=== PATIENT | female | born 1955 | race Caucasian/White ===

== ENCOUNTER 2025-01-16 06:39 | Day surgery (SDC) | payer MEDICARE, OTHER ==
[~2025-01-16] VITALS: Ht 170.2 cm; Wt 82.7 kg
[2025-01-16] MEDS ORDERED: HYOS-15 PO (07:05)
[2025-01-16] MEDS ORDERED: PANT40TA54 (07:05)
[2025-01-16] MEDS ORDERED: [UNRECOGNIZED DRUG - OTHER] PO (07:05)
[2025-01-16] MEDS ORDERED: [UNRECOGNIZED DRUG - OTHER] PO (07:06)
[2025-01-16] MEDS ORDERED: [UNRECOGNIZED DRUG - OTHER] PO (07:07)
[2025-01-16] MEDS ORDERED: L.AC1CAP6 PO (07:08)
[2025-01-16 07:21] VITALS: BP 138/83; PULSE 76; RESP 16
[2025-01-16] MEDS ORDERED: MIDAZolam 1 MG/ML 5ML VIAL ONE (08:01)
[2025-01-16] MEDS ORDERED: LIDOcaine 2% Viscous 15ml cup ONE (08:01)
[2025-01-16] MEDS ORDERED: fentaNYL/PF 50MCG/1 ML 2ML syringe ONE (08:01)
[2025-01-16] MEDS ORDERED: simethicone 40mg/0.6ml oral drops 30ml ONE (08:08)
[2025-01-16 08:34] VITALS: BP 136/74; PULSE 81; RESP 14; O2SAT 89
[2025-01-16 08:44] VITALS: BP 138/74; PULSE 75; RESP 16; O2SAT 98
[2025-01-16 08:50] VITALS: BP 129/71; PULSE 75; RESP 15; O2SAT 97
[2025-01-16 08:54] VITALS: BP 132/72; PULSE 73; RESP 16; O2SAT 98
[2025-01-16 08:59] VITALS: BP 133/81; PULSE 72; RESP 15; O2SAT 98
== END 2025-01-16 09:12 | disposition home or self-care (01) ==
LOC: GI LAB 06:39
PROVIDERS: ATTEND Surgery
DX: K44.9 Diaphragmatic hernia without obstruction or gangrene (principal); K29.70 Gastritis, unspecified, without bleeding; Z96.642 Presence of left artificial hip joint; Z98.890 Other specified postprocedural states; Z88.2 Allergy status to sulfonamides
CPT/HCPCS: 43235; A4620; G0500; J2250; J3010; J7030; Z7512; 99152; 99153

== ENCOUNTER 2025-02-01 06:47 | Day surgery (SDC) | payer MEDICARE, OTHER ==
[2025-01-23 14:59] LABS: BASOPHILS # (AUTO) 0.1 X10'3 (0-0.2); BASOPHILS % (AUTO) 1.1 % (0-1); EOSINOPHILS # (AUTO) 0.1 X10'3 (0-0.9); LYMPHOCYTES # (AUTO) 1.5 X10'3 (1.1-4.8); LYMPHOCYTES % (AUTO) 21.5 % (21-51); MEAN CORPUSCULAR HEMOGLOBIN 29.4 PG (27.0-31.0); MEAN CORPUSCULAR HGB CONC 34.2 g/dL (33.0-36.5); MEAN CORPUSCULAR VOLUME 86.1 FL (78-98); MEAN PLATELET VOLUME 7.1 FL (7.4-10.4); MONOCYTES # (AUTO) 0.7 X10'3 (0-0.9); MONOCYTES % (AUTO) 9.9 % (2-12); NEUTROPHILS # (AUTO) 4.4 X10'3 (1.8-7.7); NEUTROPHILS % (AUTO) 65.5 % (42-75); PRE OP HEMATOCRIT 38.5 % (35.0-45.0); PRE OP HEMOGLOBIN 13.2 g/dL (12.0-16.0); PRE OP PLATELET COUNT 366 X10'3 (140-440); PRE OP WHITE BLOOD COUNT 6.8 10'3 (4.8-10.8); RED BLOOD COUNT 4.48 X10'6 (4.20-5.60)
[2025-01-23 15:14] LABS: ALBUMIN/GLOBULIN RATIO 0.8 (1.1-1.5); ALKALINE PHOSPHATASE 104 IU/L (46-116); BLOOD UREA NITROGEN 12 MG/DL (7-18); BUN/CREATININE RATIO 11.9 (10.0-20.0); CALCIUM 8.9 MG/DL (8.5-10.1); CHLORIDE 109 MMOL/L (99-107); CREATININE 1.01 MG/DL (0.40-0.90); PRE OP ALT 17 U/L (30-65); PRE OP ANION GAP 7 (8-16); PRE OP AST 23 U/L (10-37); PRE OP BILIRUB, TOTAL 0.6 MG/DL (0.0-1.0); PRE OP GLUCOSE 88 MG/DL (70-104); PRE OP POTASSIUM 3.8 MMOL/L (3.4-5.1); PRE OP SODIUM 143 MMOL/L (135-145); TOTAL CARBON DIOXIDE 27.1 MMOL/L (24-32); eGFR 54 ML/MIN
[2025-02-01] VITALS (15 sets, daily range): BP systolic 133–172; BP diastolic 70–90; PULSE 70–91; RESP 11–21; TEMP 97.7; O2SAT 86–98
[~2025-02-01] VITALS: Ht 170.2 cm; Wt 84.0 kg
[~2025-02-01 06:47] MED LIST: [UNRECOGNIZED DRUG - OTHER] PO; [UNRECOGNIZED DRUG - OTHER] PO; [UNRECOGNIZED DRUG - OTHER] PO; omega-3; ringers solution, lacted 1,000 ML IV SCH
[2025-02-01] MEDS: ceFAZolin 2gm in dextrose, iso 50 ML IV ONE (07:06)
[2025-02-01] MEDS: famotidine 20mg tablet PO ONE (07:24)
[2025-02-01] MEDS ORDERED: labetalol 20mg/4ml (5mg/ml) syringe IV PRN (08:45)
[2025-02-01] MEDS ORDERED: morphine 4 MG/ML inj SYRINge IV PRN (08:45)
[2025-02-01] MEDS ORDERED: proCHLORperazine 10 MG/2 ml inj IV PRN (08:45)
[2025-02-01] MEDS ORDERED: ringers solution, lacted 1,000 ML IV SCH (08:45)
[2025-02-01] MEDS ORDERED: meperidine/PF 25mg/ml syringe IV PRN ×3 (08:45)
[2025-02-01] MEDS ORDERED: enalaprilat 1.25mg/ml 2ml vial IV PRN (08:45)
[2025-02-01] MEDS ORDERED: propofol inj 20 ML IV ONE (08:51)
[2025-02-01] MEDS ORDERED: midazolam 1 mg/ML 2ml injection ONE (08:51)
[2025-02-01] MEDS ORDERED: LIDOcaine 2% (20mg/ml) 5ml vial ONE (08:51)
[2025-02-01] MEDS ORDERED: fentaNYL /PF 50mcg/ml 5ml ampule ONE (08:51)
[2025-02-01] MEDS ORDERED: LIDOcaine 1% 30ml preserv. free vial ONE (09:14)
[2025-02-01] MEDS ORDERED: BUPIVAcaine 2.5mg/ml inj 50ml vial (contains preservative) ONE (09:14)
[2025-02-01] MEDS ORDERED: sevoflurane 250ml liquid IH ONE (09:24)
[2025-02-01] MEDS ORDERED: rocuronium 10mg/ml inj IV ONE (09:48)
[2025-02-01] MEDS: BUPIVAcaine/PF 2.5 mg/ml (0.25%) 30ml vial IJ ONE (10:15)
[2025-02-01] MEDS ORDERED: albumin (Human) 5% 250ml 250 ML IV ONE ×2 (10:53→11:42)
[2025-02-01] MEDS ORDERED: ondansetron/PF 4mg/2ml inj ONE (11:37)
[2025-02-01] MEDS ORDERED: ketorolac trometh 30MG/ML vial 30 MG/ML VIAL ONE (11:43)
[2025-02-01] MEDS ORDERED: acetaminophen 1,000mg/100ml IV 100 ML IV ONE (11:43)
[2025-02-01] MEDS ORDERED: sugammadex 200mg/2ml injection IV ONE (11:52)
[2025-02-01] MEDS ORDERED: oxyCODONE/APAP 5-325mg tablet PO PRN (11:55)
[2025-02-01] MEDS ORDERED: naloxone 0.4 mg/ml inj IV PRN (11:55)
[2025-02-01] MEDS ORDERED: ondansetron/PF 4mg/2ml inj IV PRN (11:55)
[2025-02-01] MEDS ORDERED: potassium CL 20mEq in D5-1/2NS 1,000 ML IV SCH (11:55)
[2025-02-01] MEDS: morphine 2 MG/ML inj. syringe IV PRN (12:51)
[2025-02-01] MEDS: oxyCODONE/APAP 5-325mg tablet PO ONE (13:11)
[2025-02-01] MEDS: ondansetron/PF 4mg/2ml inj IV PRN (14:05)
[2025-02-01] MEDS ORDERED: heparin, porcine 5000 units/ml vial SQ SCH (20:00)
== END 2025-02-01 13:54 | disposition home or self-care (01) ==
LOC: PAS 06:47
PROVIDERS: ATTEND Surgery
DX: K44.9 Diaphragmatic hernia without obstruction or gangrene (principal); Z79.899 Other long term (current) drug therapy; Z98.890 Other specified postprocedural states; Z90.49 Acquired absence of other specified parts of digestive tract; Z96.642 Presence of left artificial hip joint; Z87.891 Personal history of nicotine dependence; Z88.2 Allergy status to sulfonamides; M19.90 Unspecified osteoarthritis, unspecified site
CPT/HCPCS: 36415; 43282; 71045; 80053; 82948; 85025; 93005; A4615; A4618; C1781; J0131; J0690; J1100; J1885; J2003; J2250; J2270; J2405; J2704; J2710; J3010; J3490; J7030; J7120; P9045; Z7506; Z7508; Z7512; Z7610